=== PATIENT | female | born 1945 | race Caucasian/White ===

== ENCOUNTER 2019-10-01 15:35 | Observation (INO) | payer MEDICARE, BC, SELFPAY ==
[2019-10-01] VITALS (7 sets, daily range): BP systolic 81–111; BP diastolic 40–50; PULSE 77–94; RESP 14–16; TEMP 36.8–37.1; O2SAT 94–98; BMI 31.2
--- NOTE | ~2019-10-01 | CT_ITS ---
EXAMINATION: CT brain wo con DATE: 10/01/2019 16:21 INDICATION: Syncope. Dizziness. TECHNIQUE: Computed tomography (CT) of the head was performed without intravenous contrast. Sagittal and coronal reconstructions were performed. The mA was adjusted according to patient size. Iterative reconstruction technique was employed. The dose-length product was 605.33 mGy-cm. COMPARISON: None FINDINGS: No acute intracranial hemorrhage, acute infarction or abnormal extra axial fluid collection. There is mild scattered white matter hypoattenuation consistent with chronic small vessel ischemic disease. S ymmetric prominence of the sulci consistent with mild age-appropriate diffuse cerebral volume loss. V entricles are normal and symmetric. No mass/mass effect. The orbits, paranasal sinuses and mastoid ai r cells are normal. IMPRESSION: 1. No acute intracranial process. 2. Age-related changes including mild diffuse volume loss and mild scattered white matter hypoattenua tion consistent with chronic small vessel ischemic disease. Reviewed, dictated and finalized at location A. IMPRESSION: 1. No acute intracranial process. 2. Age-related changes including mild diffuse volume loss and mild scattered wh ite matter hypoattenuation consistent with chronic small vessel ischemic diseas e.
--- NOTE | 2019-10-01 15:47 | ECG_ITS ---
Measurements Intervals Mack Rate: 81 P: 72 MI: 140 QRS: 72 QRSD: 97 T: 75 QT: 395 QTc: 459 Interpretive Statements SINUS RHYTHM EARLY PRECORDIAL R/S TRANSITION BASELINE WANDER- I, II, III, AVL, AVF BORDERLINE ECG Electronically Signed On 10-01-2019 16:05:59 CDT by Gianfranco Goode D.O.
[2019-10-01 16:09] LABS: Basophils Absolute Auto 0.02 K/mm3 (0.00-0.10); Basophils Percent Auto 0.4 % (0.0-1.0); Eosinophils Absolute Auto 0.14 K/mm3 (0.02-0.50); Eosinophils Percent Auto 2.6 % (1.0-6.0); Hematocrit 25.5 % (35.0-42.0); Hemoglobin 8.5 g/dL (11.7-13.8); Immature Granulocyte Absolute 0.01 K/mm3 (0.00-0.00); Immature Granulocyte Percent A 0.2 % (0.0-0.0); Lymphocytes Absolute Auto 1.54 K/mm3 (1.10-4.50); Lymphocytes Percent Auto 28.8 % (18.0-42.0); Mean Corpuscular HGB Conc 33.3 g/dL (32.0-36.0); Mean Corpuscular Hemoglobin 31.4 pg (27.0-31.0); Mean Corpuscular Volume 94.1 fL (78.0-102.0); Mean Platelet Volume 9.8 fl (9.2-11.8); Neutrophils Absolute Auto 2.8 K/mm3 (1.7-7.2); Platelet Count Result 171 K/mm3 (150-420); Red Blood Count 2.71 M/mm3 (4.20-5.40); Red Cell Distribution Width 13.8 % (11.6-14.4); White Blood Count 5.4 K/mm3 (4.8-10.8)
[2019-10-01 16:17] LABS: Add Urine Microscopic? NO; Appearance Urine Clear (Clear); Bilirubin Urine Negative (Negative); Blood Urine Negative (Negative); Color Urine Yellow (Yellow); Glucose Urine UA Negative (Negative); Ketones Urine Negative (Negative); Leukocyte Esterase Ur Negative LEU/UL (Negative); Nitrate Urine Negative (Negative); Protein Urine Negative (Negative); Specific Grav Ur 1.015 (1.010-1.020); Urobilinogen Urine 0.2 mg/dL (0.2-1.0); pH Urine 5.5 (5.0-8.0)
[2019-10-01] MEDS: SODIUM CHLORIDE 0.9% IV 1,000 ML 999 ML IV CONT (16:19)
--- NOTE | 2019-10-01 16:20 | PC.NURSE ---
1ST LITER NS INFUSED
[2019-10-01 16:28] LABS: Lactic Acid Reflex 2.6 mmol/L (0.4-2.0)
[2019-10-01 16:32] LABS: D Dimer 0.28 mg/L (0.19-0.50); INR 1.1; Partial Thromboplastin Time 23.8 SEC (22.3-31.6); Prothrombin Time 11.2 Seconds (9.64-11.0)
[2019-10-01 16:34] LABS: Alanine Aminotransferase 25 U/L (14-59); Albumin Level 3.2 g/dL (3.4-5.0); Alkaline Phosphatase 58 U/L (46-116); Anion Gap 13.6 mmol/L (7-16); Aspartate Amino Transferase 23 U/L (15-37); Bilirubin,Total 0.2 mg/dL (0.00-1.00); Blood Urea Nitrogen 32 mg/dL (7-18); Calcium 8.4 mg/dL (8.5-10.1); Carbon Dioxide 24 mmol/L (21-32); Chloride 105 mmol/L (98-108); Estimated Glomerular Filt Rate 25; Glucose 120 mg/dL (70-99); Osmolality Calculated 295 mOsm/kg (285-295); Potassium 3.6 mmol/L (3.5-5.1); Sodium 139 mmol/L (136-145); Thyroid Stimulating Hormone 4.19 uIU/mL (0.36-3.74); Total Protein 6.4 g/dL (6.4-8.2); Troponin I < 0.02 ng/mL (0.00-0.056)
[2019-10-01 16:35] LABS: BNP 13.5 pg/mL (0-100); Magnesium 2.1 mg/dL (1.8-2.4); Reflex Lactic Acid Yes or No Add Lactic
--- NOTE | 2019-10-01 16:49 | ED.SYNCOPE ---
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 Patient has a history of hypertension and is currently on lisinopril /hydrochlorothiazide, her hydrochlorothiazide is a 25 mg daily which could contribute to her syncopal episode and dehydration. Patient has a history of hypothyroidism and hyperlipidemia. Currently her initial blood pressure was 80/40 received bolus of normal saline via EMS and current blood pressure is 94/50 with continued normal saline IV fluids. MD complaint: loss of consciousness Onset (ago): hour(s) -: second(s) Description of event: incontinence Prodromal symptoms: none Context: at rest and alcohol use Injuries sustained associated with event: none Current symptoms: none and weakness Treatments prior to arrival: none Related Data Home Medications Medication Instructions Recorded Confirmed calcium carbonate-vitamin D3 1 tablet PO DAILY 10/01/19 10/01/19 [Caltrate with Vitamin D3] folic acid 1 mg PO DAILY 10/01/19 10/01/19 levothyroxine 25 mcg PO QMWF 10/01/19 10/01/19 lisinopril-hydrochlorothiazide 1 tablet PO DAILY 10/01/19 10/01/19 rosuvastatin [Crestor] 10 mg PO DAILY 10/01/19 10/01/19 vit C-vit S-thegmk-zuih-lutein 1 cap PO DAILY 10/01/19 10/01/19 [PreserVision Lutein] vitamin B complex [B 1 tablet PO DAILY 10/01/19 10/01/19 Complex-Vitamin B12] Allergies Allergy/AdvReac Type Severity Reaction Status Date / Time hydroxychloroquine Allergy Hives Verified 10/01/19 16:01 [From Plaquenil] leflunomide [From Arava] Allergy Hives Verified 10/01/19 16:01 Sulfa (Sulfonamide Allergy Hives Verified 10/01/19 16:01 Antibiotics) Review of Systems Review of Systems: All systems reviewed & are unremarkable except as noted in HPI and below PMFSH Past Medical History Medical History HLD (hyperlipidemia) HTN (hypertension) Hypothyroidism (acquired) Exam Const: General: no acute distress and alert Nutritional Appearance: well nourished Orientation/consciousness: patient oriented x3 HENMT: Head: normal to inspection Eyes: Conjunctivae: conjunctivae normal Pupils: Equal, round and reactive pupils present EOM: EOMs intact bilaterally Neck: Neck: normal visual inspection, no lymphadenopathy and no meningeal signs Chest: Chest palpation & inspection: normal inspection of the chest Resp: Effort & Inspection: normal respiratory effort Auscultation: clear to auscultation bilaterally Cardio: Rate: regular rate Rhythm: regular rhythm GI: Auscultation: normal bowel sounds : General: Yes no CVA tenderness Urinary Catheter: Urinary Catheter: patent and draining Skin: General skin exam: normal color Rashes: no rashes Neuro: General: patient oriented x3, moves all extremities, no meningeal signs and no focal motor deficits Extrem: General: normal to inspection Psych: Appearance: grossly normal Mental Status: mental status grossly normal Thought content: Yes Normal thought content present Course Course Emergency Course: reassessment of patient patient appears comfortable currently there is no shortness of breath no headaches no blurry vision no nausea vomiting the patient did receive 2nd bolus of IV fluids and her current blood pressure 90/50, the patient appears comfortable was informed about
[2019-10-01] MEDS: SODIUM CHLORIDE 0.9% IV 1,000 ML 100 ML IV CONT (19:06)
--- NOTE | 2019-10-01 19:16 | PC.NURSE ---
here from er @ 3220 with c/o of having passed out or almost at a local restaurant. Denies cp. A& O x's4. denies sob. claims she drank 2 drinks and then felt faint. lungs cta. abd soft and bs present. no edema. sr on tele with rates of 80's. call light use explained and encouraged to use call light for help.
[2019-10-01 19:38] LABS: Lactic Acid 1.3 mmol/L (0.4-2.0)
--- NOTE | 2019-10-01 19:43 | PC.NURSE ---
Patient up with SBA only to toilet. No light headness,. Denies pain or discomfort. telemetry shows sinus rhythm
--- NOTE | 2019-10-01 23:30 | PC.NURSE ---
Patient resting in bed. IV intact, continuous NS infusing at 100.
[2019-10-02] VITALS (9 sets, daily range): BP systolic 103–146; BP diastolic 44–59; PULSE 79–90; RESP 16–20; TEMP 36.5–36.7; O2SAT 96–97
--- NOTE | 2019-10-02 01:30 | PC.NURSE ---
Patient resting in bed. Continuous normal saline infusing at 100 ml/hr. Sinus rhythm on telemetry.
--- NOTE | 2019-10-02 02:30 | PC.NURSE ---
Patient resting in bed. No signs of distress observed. Normal saline infusing at 100 ml/hr.
--- NOTE | 2019-10-02 03:30 | PC.NURSE ---
Patient resting in bed. Continuous normal saline infusing at 100 ml/hr. Sinus rhythm on telemetry.
[2019-10-02] MEDS: SODIUM CHLORIDE 0.9% IV 1,000 ML 100 ML IV CONT (03:55)
--- NOTE | 2019-10-02 03:58 | PC.NURSE ---
Patient ambulated to the bathroom independently. She denies dizziness or lightheadedness upon standing or with ambulation.
--- NOTE | 2019-10-02 04:30 | PC.NURSE ---
Patient resting in bed. Continuous normal saline is infusing at 100 ml/hr.
[2019-10-02] MEDS: LEVOTHYROXINE SODIUM 25 MCG TABLET PO (05:56)
--- NOTE | 2019-10-02 05:58 | PC.NURSE ---
Patient took AM pill whole with water
--- NOTE | 2019-10-02 06:06 | PC.NURSE ---
Patient ambulated to the bathroom independently, she denies dizziness or feeling light headed. Gait is steady.
[2019-10-02 08:26] LABS: Basophils Absolute Auto 0.03 K/mm3 (0.00-0.10); Basophils Percent Auto 0.4 % (0.0-1.0); Eosinophils Absolute Auto 0.06 K/mm3 (0.02-0.50); Eosinophils Percent Auto 0.7 % (1.0-6.0); Hematocrit 28.7 % (35.0-42.0); Hemoglobin 9.4 g/dL (11.7-13.8); Immature Granulocyte Absolute 0.03 K/mm3 (0.00-0.00); Immature Granulocyte Percent A 0.4 % (0.0-0.0); Lymphocytes Percent Auto 10.9 % (18.0-42.0); Mean Corpuscular HGB Conc 32.8 g/dL (32.0-36.0); Mean Corpuscular Volume 94.7 fL (78.0-102.0); Mean Platelet Volume 10.3 fl (9.2-11.8); Neutrophils Absolute Auto 6.8 K/mm3 (1.7-7.2); Neutrophils Percent Auto 81.6 % (50.0-70.0); Platelet Count Result 189 K/mm3 (150-420); Red Blood Count 3.03 M/mm3 (4.20-5.40); Red Cell Distribution Width 13.9 % (11.6-14.4); White Blood Count 8.3 K/mm3 (4.8-10.8)
[2019-10-02] MEDS: FOLIC ACID 1 MG TABLET PO (08:39)
[2019-10-02] MEDS: VITAMIN B COMPLEX CAPSULE 1 CAP PO (08:39)
[2019-10-02] MEDS: CALCIUM/VITAMIN D 250 MG TABLET 1 TABLET PO (08:39)
[2019-10-02] MEDS: OPTI-GEN TAB 1 TABLET PO (08:39)
[2019-10-02 08:50] LABS: Alanine Aminotransferase 25 U/L (14-59); Albumin Level 3.3 g/dL (3.4-5.0); Alkaline Phosphatase 63 U/L (46-116); Anion Gap 13.7 mmol/L (7-16); Aspartate Amino Transferase 24 U/L (15-37); Bilirubin,Total 0.2 mg/dL (0.00-1.00); Blood Urea Nitrogen 30 mg/dL (7-18); Calcium 8.6 mg/dL (8.5-10.1); Carbon Dioxide 24 mmol/L (21-32); Chloride 108 mmol/L (98-108); Estimated CRCL calculation 31 ml/min; Estimated Glomerular Filt Rate 34; Glucose 108 mg/dL (70-99); Magnesium 2.1 mg/dL (1.8-2.4); Osmolality Calculated 299 mOsm/kg (285-295); Potassium 4.7 mmol/L (3.5-5.1); Sodium 141 mmol/L (136-145); Total Protein 6.7 g/dL (6.4-8.2)
[2019-10-02 08:57] LABS: Lactic Acid Reflex 1.9 mmol/L (0.4-2.0)
--- NOTE | 2019-10-02 10:47 | PM.SD ---
Same Day Admit/Disch: HPI History of Present Illness Chief complaint: DEHYRATION Narrative: Charlotte Palacios is a 74 year old female That presented to the ED status post syncope episode. Patient has a past medical history of hyperlipidemia, hypertension and hypothyroidism. this patient is from out of town and was here visiting her daughters to celebrate her 74th birthday. According to patient her and her family were having dinner at a [place] restaurant while drinking margaritas and she started to feel dizzy with a slight headache she also noted that she had shortness of breath but she does has a history of COPD. That was the last thing she remembered she noted that her family members informed her that she had blacked out she also noted that she was incontinent of her urine during that time. Patient did deny hitting her head during this episode she was in the sitting position she also denies any seizure activity. while patient was in the ED she received 2 boluses of fluid, blood pressure was 80/40, D-dimer was negative, her lactic acid was elevated, CT of the head was unremarkable.She noted that she had not consumed much water and that she is on a diuretic. Patient feels that dehydration may have caused this episode. 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 Butler both providers will receive a copy of her admission discharge. I did call to get patient's baseline hemoglobin and hematocrit. patient notes that her condition has much improved since admission her blood pressure has improved ,her vitals currently are 134/59, 98.1, 83, 18, 96% air. patient will discharge today instructed to drink plenty of fluids ,no driving for 2 weeks and to follow-up with her primary care physician. Patient able to tolerate all meals , slept well and ambulate at baseline. Patient denies SOB, CP, palpitation, extremity numbness, lightheadness, dizziness, constipation, diarrhea, chills or fever. Patient agree that they are ready for discharge and discharge plan. [facility] Past Medical History Medical History HLD (hyperlipidemia) HTN (hypertension) Hypothyroidism (acquired) Social History Social History Smoking status: Former smoker Tobacco type: cigarettes Second hand tobacco smoke exposure: Yes Smoking end date: 09/13/16 Alcohol intake: current Drinks per week: 1 Substance use: former Substance use type: does not use Gender identity (if verbalized by the patient): Female Sexual Orientation (if Verbalized by the Patient): Straight or Heterosexual Spiritual care concerns: No Same Day Admit/Disch: Med Pre-admit Medications Home Medications Medication Instructions Recorded Confirmed Type calcium carbonate-vitamin D3 1 tablet PO DAILY 10/01/19 10/01/19 History [Caltrate with Vitamin D3] folic acid 1 mg PO DAILY 10/01/19 10/01/19 History levothyroxine 25 mcg PO QMWF 10/01/19 10/01/19 History rosuvastatin [Crestor] 10 mg PO DAILY 10/01/19 10/01/19 History vit C-vit A-aieizz-jrja-lutein 1 cap PO DAILY 10/01/19 10/01/19 History [PreserVision Lutein] vitamin B complex [B 1 tablet PO DAILY 10/01/19 10/01/19 History Complex-Vitamin B12] lisinopril 20 mg PO DAILY #30 tablet 10/02/19 Rx Exam Narrative: Exam Narrative: General: A well-developed, well-nourished alert and orientated HEENT: Normocephalic, atraumatic. PERRL, EOMI. Sclerae anicteric. Oral mucosa moist. Oropharynx clear. Neck: Supple. Respiratory: Lungs are clear to auscultation bilaterally. Cardiovascular: Regular rate and rhythm with S1-S2. Gastrointestinal: Abdomen is soft, nontender, and nondistended with positive bowel sounds. No organomegaly. Skin: Warm, dry, and slightly pale.. No rash or lesions on limited exam. Extremities: No cyanosis, clubbing, or edema. Radial and pedal pulses intact. Neurological: Alert. Cranial nerv
--- NOTE | 2019-10-02 11:56 | PC.NURSE ---
discharge instructions given to patient. questions answered. pt called and he will be here around 12:30 to bring her some clothing and pick her up.
--- NOTE | 2019-10-02 23:06 | PM.EVENT ---
Event Note Event Note Event Note: Patient states she feels much better. Eating breakfast in bed this morning. Patient states she has a history of anemia and that her doctor attributed it to her rheumatoid arthritis. Alert and oriented. No acute distress. Lungs are clear to auscultation bilaterally. Abdomen is soft and nontender. Extremities are warm dry and pink. Creatinine is improved and orthostatics are negative. Home to follow-up with her primary care doctor. I have reviewed the chart and examined the patient. I discussed the patient's care with Deborah Dumont APN and agree with her assessment plan.
== END 2019-10-02 12:53 | disposition home or self-care (01) ==
LOC: CHSED 16:56 → CHS2ND 17:06
PROVIDERS: Admitting Provider Emergency Medicine; Emergency Provider Emergency Medicine; Visit Provider Emergency Medicine
DX: E86.0 Dehydration (principal); N17.9 Acute kidney failure, unspecified; I95.1 Orthostatic hypotension; I10 Essential (primary) hypertension; E03.9 Hypothyroidism, unspecified; E78.5 Hyperlipidemia, unspecified; M06.9 Rheumatoid arthritis, unspecified; D64.9 Anemia, unspecified
CPT/HCPCS: 36415; 70450; 80053; 81003; 83605; 83735; 83880; 84443; 84484; 85025; 85380; 85610; 85730; 87040; 93005; 96360; 96361; 99284; 99285; A9270; G0378; J7030